=== PATIENT | male | born 1945 | race Caucasian/White ===

== ENCOUNTER 2019-11-12 14:49 | Outpatient (CLI) | payer MEDICARE, OTHER, SELFPAY ==
--- NOTE | ~2019-11-12 | US_ITS ---
EXAMINATION: US venous doppler [facility] DATE: 11/12/2019 15:20 INDICATION: Left lower limb pain and swelling TECHNIQUE: Mcneil scale images without and with compression and Doppler images of the left lower extrem ity veins were obtained. COMPARISON: None FINDINGS: The left common femoral vein, profunda femoral vein, femoral vein, popliteal vein, peroneal trunk, posterior tibial veins, and greater saphenous vein are patent. IMPRESSION: 1. Patent left lower extremity veins. No evidence of deep venous thrombosis. Reviewed, dictated and finalized at location A.
== END 2019-11-12 14:50 | disposition home or self-care (01) ==
LOC: ANHIMG 14:55
PROVIDERS: PCP Family Medicine; Visit Provider Family Medicine
DX: M79.89 Other specified soft tissue disorders (principal); M79.662 Pain in left lower leg; R22.42 Localized swelling, mass and lump, left lower limb
CPT/HCPCS: 93971

== ENCOUNTER 2020-09-29 13:16 | Outpatient (CLI) | payer MEDICARE, OTHER, SELFPAY ==
[2020-09-29 13:56] LABS: Basophils Absolute Auto 0.1 K/mm3 (0.0-0.1); Basophils Percent Auto 0.6 % (0.2-1.2); Eosinophils Absolute Auto 0.3 K/mm3 (0-0.3); Eosinophils Percent Auto 2.9 % (0-4.4); Hematocrit 47.1 % (42.0-52.0); Hemoglobin 15.6 g/dL (14.0-18.0); Immature Granulocyte Absolute 0.05 K/mm3 (0.00-0.031); Immature Granulocyte Percent A 0.5 % (0-0.5); Lymphocytes Absolute Auto 2.98 K/mm3 (0.9-3.2); Mean Corpuscular HGB Conc 33.1 g/dl (32-36); Mean Corpuscular Hemoglobin 31.2 pg (26-34); Mean Corpuscular Volume 94.2 fl (80-100); Mean Platelet Volume 9.5 fl (7.4-10.4); Monocytes Absolute Auto 0.9 K/mm3 (0.1-0.6); Monocytes Percent Auto 8.6 % (2.6-8.5); Neutrophils Absolute Auto 6.3 K/mm3 (1.3-6.7); Neutrophils Percent Auto 59.4 % (45.5-73.1); Platelet Count Result 165 k/mm3 (150-375); White Blood Count 10.6 K/mm3 (4.5-10.0)
[2020-09-29 14:07] LABS: Alanine Aminotransferase 18 U/L (4-50); Albumin Level 4.3 g/dL (3.5-5.1); Alkaline Phosphatase 117 U/L (38-126); Anion Gap 4 mmol/L (8-16); Aspartate Amino Transferase 23 U/L (17-59); Bilirubin,Total 0.4 mg/dL (0.2-1.3); Blood Urea Nitrogen 20 mg/dL (9-20); Calcium 10.1 mg/dL (8.4-10.2); Carbon Dioxide 30 mmol/L (22-30); Chloride 104 mmol/L (98-107); Cholesterol 144 mg/dL (0-200); Estimated Glomerular Filt Rate 37; Glucose 89 mg/dL (75-110); HDL Direct 36 mg/dL; Sodium 138 mmol/L (137-145); Triglycerides 203 mg/dL (<150); Uric Acid 4.4 mg/dL (3.5-8.5)
[2020-09-29 14:18] LABS: LDL Cholesterol Direct 81 mg/dL
[2020-09-29 14:26] LABS: Erythrocyte Sedimentation Rate 6 mm/hr (0-20)
[2020-10-04 00:22] LABS: Vitamin D 1,25 (OH)2 Total 24 pg/mL (18-72); Vitamin D2 1,25 (OH)2 <8 pg/mL; Vitamin D3 1,25 (OH)2 24 pg/mL
== END 2020-09-29 13:17 | disposition home or self-care (01) ==
PROVIDERS: PCP Family Medicine; Visit Provider Family Medicine
DX: E79.0 Hyperuricemia without signs of inflammatory arthritis and tophaceous disease (principal); I10 Essential (primary) hypertension; E78.2 Mixed hyperlipidemia; I71.4 Abdominal aortic aneurysm, without rupture; I73.9 Peripheral vascular disease, unspecified; E55.9 Vitamin D deficiency, unspecified
CPT/HCPCS: 36415; 80053; 80061; 82652; 84550; 85025; 85652

== ENCOUNTER 2020-10-04 13:18 | Outpatient (CLI) | payer MEDICARE, OTHER, SELFPAY ==
--- NOTE | ~2020-10-04 | CT_ITS ---
EXAMINATION: CT diagnostic chest wo con DATE: 10/04/2020 13:51 INDICATION: Chronic obstructive pulmonary disease TECHNIQUE: Computed tomography (CT) of the chest was performed without intravenous contrast. Automate d exposure control and iterative reconstruction technique were employed. Exam dose: 319.05 mGy-cm to ila exam DLP. COMPARISON: 04/14/2013 CT chest abdomen FINDINGS: Normal size of the thyroid gland. There is aortic and great vessel and extensive coronary artery calcification. Status post sternotomy and coronary bypass graft surgery. Normal heart size. No pericardial or pleural effusion. No hilar or mediastinal mass lesion or lymphadenopathy. There are severe emphysematous changes of the lungs. There is mild infiltrate or atelectasis in the posterior basilar right lower lobe and lingular area. Approximately 4 mm gallstone. No gallbladder wall thickening or pericholecystic fat stranding or flui d. 3.2 cm upper pole right renal cyst. Up to 6.5 cm caliber suprarenal abdominal aortic aneurysm. Idiopathic skeletal hyperostosis of the lower thoracic spine. No suspicious osteolytic or osteoblasti c lesions. IMPRESSION: Emphysema Status post sternotomy/coronary artery bypass graft surgery Mild infiltrate or atelectasis in the posterior basilar right lower lobe and lingula Cholelithiasis 3.2 cm upper pole right renal cysts Up to 6.5 cm caliber suprarenal abdominal aortic aneurysm; surgical consultation is recommended. Reviewed, dictated and finalized at Location A. Reviewed, dictated and finalized at location A. IMPRESSION: Emphysema Status post sternotomy/coronary artery bypass graft surgery Mild infiltrate or atelectasis in the posterior basilar right lower lobe and li ngula Cholelithiasis 3.2 cm upper pole right renal cysts Up to 6.5 cm caliber suprarenal abdominal aortic aneurysm; surgical consultatio n is recommended.
== END 2020-10-04 13:19 | disposition home or self-care (01) ==
PROVIDERS: PCP Family Medicine; Visit Provider Family Medicine
DX: J44.9 Chronic obstructive pulmonary disease, unspecified (principal); Z95.1 Presence of aortocoronary bypass graft; R91.8 Other nonspecific abnormal finding of lung field; K80.20 Calculus of gallbladder without cholecystitis without obstruction; N28.1 Cyst of kidney, acquired; I71.4 Abdominal aortic aneurysm, without rupture; Z72.0 Tobacco use
CPT/HCPCS: 71250

== ENCOUNTER 2020-12-14 15:55 | Emergency (ER) | payer MEDICARE, OTHER, SELFPAY ==
--- NOTE | ~2020-12-14 | XR_ITS ---
XR knee RT min 4V DATE: 12/14/2020 16:57 INDICATION: Right knee pain and swelling TECHNIQUE: 4 views including portable crosstable lateral COMPARISON: None FINDINGS: Multiple metallic foreign bodies suggestive of shrapnel. Mild suprapatellar knee joint effusion is suggested. Probable old healed proximal to mid fibular shaft fracture. No recent fracture or dislocation, perios teal reaction or bone destruction. Joint spaces appear relatively preserved. No radiopaque intra-anusha cular loose body or chondrocalcinosis. IMPRESSION: Multiple metallic foreign bodies Probable healed fibular shaft fracture Reviewed, dictated and finalized at location A.
[2020-12-14 16:03] VITALS: BP 137/81; PULSE 87; RESP 20; TEMP 36.9; O2SAT 97
--- NOTE | 2020-12-14 16:30 | ED.GENADULT ---
HPI - General Adult General Chief complaint: Unspecified Stated complaint: reaction to covid vaccine Time Seen by Provider: 12/14/20 16:12 Source: patient Mode of arrival: ambulatory Limitations: no limitations History of Present Illness HPI narrative: This is a 75 year old male that presents to the ER for right knee pain x 3 days. Also reports generalized body aches. Reports he recently had his second covid vaccination. Reports the knee has been painful and swollen. Worse with movement and relieved with rest. He does have history of gout. He has not taken any pain medication for pain. Denies fever, or erythema. Related Data Allergies Allergy/AdvReac Type Severity Reaction Status Date / Time No Known Allergies Allergy Unverified 09/28/20 13:08 Review of Systems Review of Systems: Narrative: CONSTITUTIONAL: Denies fever SKIN: Denies rash MUSCULOSKELETAL: Reports joint pain, and myalgia. NEUROLOGIC: Denies numbness All systems reviewed & are unremarkable except as noted in HPI and below PMFSH Past Medical History Medical History AAA (abdominal aortic aneurysm) Cerebral aneurysm without rupture COPD (chronic obstructive pulmonary disease) Coronary atherosclerosis due to calcified coronary lesion of diomede artery Mixed hyperlipidemia PAD (peripheral artery disease) PVD (peripheral vascular disease) Tobacco abuse Surgical History Surgical History Hx of CABG S/P AAA repair S/P arterial stent S/P insertion of iliac artery stent Family History Family History Mother Hypertension Family history of elevated blood lipids Family history of coronary artery disease, Onset Age: 62 Father Patient's father is Social History Social History (Updated 09/28/20 @ 13:08 by Opal Oliver) Social History: Smoking status: Former smoker Tobacco type: cigarettes Second hand tobacco smoke exposure: No Smoking end date: 05/26/17 Alcohol intake: never Substance use: never Substance use type: does not use Gender identity (if verbalized by the patient): Male Exam Narrative: Exam Narrative: GENERAL: Well-appearing, well-nourished, and in no acute distress. HEAD: Normocephalic, atraumatic. EYES: EOMI. CHEST: Clear to auscultation. No respiratory distress. No wheezes rales or rhonchi HEART: Regular rate and rhythm. No murmur heard. Normal peripheral pulses. EXTREMITIES: Normal range of motion. Pain with active ROM in the right knee. Mild edema to the right knee anteriorly with mild warmth. No erythema. DP pulses obtained by doppler SKIN: Warm, dry, no rash. NEURO: No focal deficits. Alert and oriented x3. PSYCH: Normal mood and affect Course Consultations Consultation #1: Spoke with Dr. Jay about patient and workup who agrees with plan and will follow up in clinic Date: 12/14/20 Time: 17:30 Vital Signs Vital signs: Vital Signs Temperature 98.4 F 12/14/20 16:03 Pulse Rate 87 12/14/20 16:03 Respiratory Rate 20 12/14/20 16:03 Blood Pressure 137/81 12/14/20 16:03 Pulse Oximetry 97 12/14/20 16:03 Temperature 98.4 F 12/14/20 16:03 Pulse Rate 87 12/14/20 16:03 Respiratory Rate 20 12/14/20 16:03 Blood Pressure 137/81 12/14/20 16:03 Pulse Oximetry 97 12/14/20 16:03 Medical Decision Making MDM Narrative Medical decision making narrative: Patient presents to the emergency department for right knee pain ongoing over the last couple of days. No recent injury or trauma. The knee is mildly swollen and warm. No erythema. Patient is afebrile. No leukocytosis on CBC. CRP is not elevated. Kidney function appears to be around patient's baseline. Right knee x-ray shows a mild suprapatellar knee joint effusion. Patient does have history of gout. Will be treated for gout flare with colchicine.
[2020-12-14 16:55] LABS: Basophils Percent Auto 0.5 % (0.2-1.2); Eosinophils Absolute Auto 0.2 K/mm3 (0-0.3); Eosinophils Percent Auto 2.7 % (0-4.4); Hematocrit 47.5 % (42.0-52.0); Hemoglobin 15.4 g/dL (14.0-18.0); Immature Granulocyte Absolute 0.03 K/mm3 (0.00-0.031); Immature Granulocyte Percent A 0.4 % (0-0.5); Lymphocytes Absolute Auto 2.09 K/mm3 (0.9-3.2); Lymphocytes Percent Auto 25.2 % (18.3-44.2); Mean Corpuscular HGB Conc 32.4 g/dl (32-36); Mean Corpuscular Volume 95.8 fl (80-100); Mean Platelet Volume 9.7 fl (7.4-10.4); Monocytes Absolute Auto 0.4 K/mm3 (0.1-0.6); Monocytes Percent Auto 5.2 % (2.6-8.5); Neutrophils Absolute Auto 5.5 K/mm3 (1.3-6.7); Platelet Count Result 128 k/mm3 (150-375); Red Blood Count 4.96 M/mm3 (4.6-6.20); Red Cell Distribution Width 15.6 % (11.5-14.5); White Blood Count 8.3 K/mm3 (4.5-10.0)
[2020-12-14 17:09] LABS: Anion Gap 10 mmol/L (8-16); Blood Urea Nitrogen 19 mg/dL (9-20); Calcium 9.8 mg/dL (8.4-10.2); Carbon Dioxide 25 mmol/L (22-30); Chloride 103 mmol/L (98-107); Estimated CRCL calculation 33 ml/min; Estimated Glomerular Filt Rate 37; Glucose 137 mg/dL (65-110); Potassium 4.3 mmol/L (3.4-5.0); Sodium 138 mmol/L (137-145); Uric Acid 4.5 mg/dL (3.5-8.5)
[2020-12-14 17:31] LABS: Erythrocyte Sedimentation Rate 7 mm/hr (0-20)
[2020-12-14 17:45] VITALS: BP 128/76; PULSE 91; RESP 18; O2SAT 98
[2020-12-14] MEDS: COLCHICINE 0.6 MG TABLET 1.2 MG PO (17:46)
== END 2020-12-14 17:49 | disposition home or self-care (01) ==
PROVIDERS: Physician Assistant; Emergency Provider Emergency Medicine; PCP Family Medicine
DX: M70.41 Prepatellar bursitis, right knee (principal); M10.9 Gout, unspecified; J44.9 Chronic obstructive pulmonary disease, unspecified; I25.10 Atherosclerotic heart disease of native coronary artery without angina pectoris; E78.2 Mixed hyperlipidemia; I73.9 Peripheral vascular disease, unspecified; Z95.1 Presence of aortocoronary bypass graft; Z95.5 Presence of coronary angioplasty implant and graft; Z87.891 Personal history of nicotine dependence
CPT/HCPCS: 36415; 73564; 80048; 84550; 85025; 85652; 86140; 99283; A9270

== ENCOUNTER 2021-08-06 14:12 | Outpatient (CLI) | payer MEDICARE, OTHER, SELFPAY ==
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
== END 2021-08-06 14:13 | disposition home or self-care (01) ==
LOC: ANHIMG 14:15
PROVIDERS: PCP Family Medicine; Visit Provider Nurse Practitioner Gerontology
DX: R06.02 Shortness of breath (principal)
CPT/HCPCS: 71046

== ENCOUNTER 2022-02-11 13:33 | Outpatient (CLI) | payer MEDICARE, OTHER, SELFPAY ==
[2022-02-11 14:12] LABS: Basophils Percent Auto 0.5 % (0.2-1.2); Eosinophils Absolute Auto 0.2 K/mm3 (0-0.3); Eosinophils Percent Auto 2.2 % (0-4.4); Immature Granulocyte Absolute 0.04 K/mm3 (0.00-0.031); Immature Granulocyte Percent A 0.5 % (0-0.5); Lymphocytes Absolute Auto 2.65 K/mm3 (0.9-3.2); Lymphocytes Percent Auto 30.9 % (18.3-44.2); Mean Corpuscular HGB Conc 32.7 g/dl (32-36); Mean Corpuscular Hemoglobin 32.3 pg (26-34); Mean Corpuscular Volume 98.8 fl (80-100); Monocytes Absolute Auto 0.7 K/mm3 (0.1-0.6); Monocytes Percent Auto 8.2 % (2.6-8.5); Neutrophils Percent Auto 57.7 % (45.5-73.1); Platelet Count Result 149 k/mm3 (150-375); Red Blood Count 4.96 M/mm3 (4.6-6.20); Red Cell Distribution Width 15.3 % (11.5-14.5); White Blood Count 8.6 K/mm3 (4.5-10.0)
[2022-02-11 14:31] LABS: Alanine Aminotransferase 25 U/L (6-50); Albumin Level 4.1 g/dL (3.5-5.1); Alkaline Phosphatase 109 U/L (38-126); Anion Gap 9 mmol/L (8-16); Aspartate Amino Transferase 23 U/L (17-59); Bilirubin,Total 0.6 mg/dL (0.2-1.3); Blood Urea Nitrogen 20 mg/dL (9-20); Carbon Dioxide 23 mmol/L (22-30); Chloride 107 mmol/L (98-107); Cholesterol 136 mg/dL (0-200); Estimated Glomerular Filt Rate 39; Glucose 84 mg/dL (65-110); HDL Direct 33 mg/dL; Sodium 139 mmol/L (137-145); Triglycerides 211 mg/dL (<150)
[2022-02-11 14:42] LABS: LDL Cholesterol Direct 74 mg/dL
== END 2022-02-11 13:34 | disposition home or self-care (01) ==
PROVIDERS: PCP Family Medicine; Visit Provider Nurse Practitioner Gerontology
DX: E78.2 Mixed hyperlipidemia (principal); N18.30 Chronic kidney disease, stage 3 unspecified; I71.4 Abdominal aortic aneurysm, without rupture
CPT/HCPCS: 36415; 80053; 80061; 85025

== ENCOUNTER 2023-06-24 14:16 | Outpatient (CLI) | payer MEDICARE, OTHER, SELFPAY ==
--- NOTE | ~2023-06-24 | XR_ITS ---
XR shoulder LT min 2V DATE: 06/24/2023 14:35 INDICATION: Chronic left shoulder pain. No injury. TECHNIQUE: 4 views COMPARISON: None FINDINGS: The humeral head abuts the undersurface of the acromion process consistent with rotator cuf f tear or atrophy. There is mild degenerative change at the left acromioclavicular joint. There is diffuse osteopenia. No fracture, dislocation, periosteal reaction or bone destruction or abn ormal soft tissue calcification of the left shoulder is detected. Status post sternotomy. Thoracic aortic calcification. Probable left carotid artery stent. IMPRESSION: Left rotator cuff tear or chronic atrophy Osteopenia Reviewed, dictated and finalized at location L. [employer]
== END 2023-06-24 14:17 | disposition home or self-care (01) ==
LOC: ANHIMG 14:19
PROVIDERS: PCP Family Medicine; Visit Provider Family Medicine
DX: M25.512 Pain in left shoulder (principal); M75.102 Unspecified rotator cuff tear or rupture of left shoulder, not specified as traumatic; M85.88 Other specified disorders of bone density and structure, other site
CPT/HCPCS: 73030

== ENCOUNTER 2025-01-27 15:40 | Outpatient (CLI) | payer MEDICARE, OTHER, SELFPAY ==
--- OUTSIDE RECORDS SUMMARY | 2013-01-13 19:00 | XMS_ITS | Continuity of Care Document ---
Author Organization [facility] Address [address] [place] [address] Phone Care Team Providers Care Batch Unloader Name Role Phone Jose Abbott MD Unavailable Unavailable Advance Directives Directive Yes / No Effective Date File Name No Information Encounters Encounter Description Practice Location Reason(s) For Visit Diagnoses Date Provider Providers Copied on Encounter [facility], [address] [place], [place], [id number], [place] tel:[phone] [facility] No Information Scar Garcia. [address] [place], [place], [id number], [place]. tel:[phone] Family History Family Member Type Diagnosis Age [...]
--- NOTE | ~2025-01-27 | CT_ITS ---
EXAMINATION: CT lung screening DATE: 01/27/2025 15:56 INDICATION: Nicotine dependence. TECHNIQUE: Computed tomography (CT) of the chest was performed without intravenous contrast. The dose-length product was 197.57 mGy-cm. Automated exposure control and iterative reconstruction technique were employed. COMPARISON: CT dated 10/04/2020 FINDINGS: There is a large saccular aneurysm of the abdominal aorta at the level of the renal arteries measuring 14.1 x 9.5 cm with focal area of hyperdensity suspicious for associated hemorrhage. This is incompletely visualized at its inferior extent. There is atherosclerosis of the aorta and coronary arteries in the chest. No significant pleural or pericardial effusion. Heart size normal. No thoracic lymphadenopathy. Severe emphysema. No endobronchial lesions. There is calcified granuloma in the left lower lobe. No focal airspace consolidation. No pneumothorax. There are a few 1-2 mm upper lobe nodules, likely benign. Status post median sternotomy for CABG. Mild thoracic spondylosis. There are gallstones. There is 3.5 cm cyst in the upper pole of the right kidney. IMPRESSION: 1. Lung-RADS category 2: Benign appearance or behavior. Continue annual screening with noncontrast low-dose chest CT in 12 months. 2: Large abdominal aortic saccular aneurysm measuring 14.1 x 9.5 cm greatest axial dimension, incompletely visualized. Possible associated internal hemorrhage versus calcified thrombus. This appears to have increased since prior study although it was not completely included on the prior examination. Dr. Asael Chatterjee discussed with Dr. Josue Dennison MD at 02/04/2025 15:44 CDT. Reviewed, dictated and finalized at location O. IMPRESSION: 1. Lung-RADS category 2: Benign appearance or behavior. Continue annual screeni ng with noncontrast low-dose chest CT in 12 months. 2: Large abdominal aortic saccular aneurysm measuring 14.1 x 9.5 cm greatest ax ial dimension, incompletely visualized. Possible associated internal hemorrhage versus calcified thrombus. This appears to have increased since prior study al though it was not completely included on the prior examination. Dr. Asael Chatterjee discussed with Dr. Josue Dennison MD at 02/04/2025 15:44 CDT.
--- OUTSIDE RECORDS SUMMARY | 2025-01-27 15:45 | XMS_ITS | Clinical Summary ---
Author Organization [facility] Address [address] [place] [address] Care Team Providers Care Airport Operations Duty Manager Name Role Phone Josue Dennison MD Primary Care Provider [phone] Allergies Active Allergy Reactions Criticality Noted Date Comments Codeine Unknown 05/12/2004 Medications aspirin 81 MG tablet Take 324 mg by mouth daily. Active cilostazol 100 MG tablet TAKE 1 TABLET BY MOUTH TWICE DAILY HOUR BEFORE OR 2 HOURS AFTER BREAKFAST AND DINNER 0 Active clopidogrel 75 MG tablet Take 75 mg by mouth daily. 5 Active vitamin D2, ergocalciferol, 33186 UNITS capsule Take 50,000 Units by mouth once a week. 9 Active esomeprazole 40 MG capsule Take 40 mg by mouth. Active fluticasone propionate 50 MCG/ACT nasal spray 9 Active gabapentin 100 MG capsule Take 100 mg by mouth 3 (three) times daily. 0 Active ondansetron (ZOFRAN-ODT) 4 MG disintegrating tablet Take 1 tablet (4 mg total) by mouth every 8 (eight) hours as needed for Nausea. 20 tablet 3 Active sucralfate (CARAFATE) 1 G tablet Take 1 tablet (1 g total) by mouth 4 (four) times daily before meals and nightly. 120 tablet 3 Active Active Problems Problem Noted Date Diagnosed Date Tear of left rotator cuff 10/29/2023 Shoulder pain, left 08/12/2023 Immunizations Immunization Administration Dates Next Due Tdap (Boostrix) 10/14/2024(Deferred: Patient/family declined - last tetanus in 2022) Social History Tobacco Use Types Packs/Day Years Used Date Smoking Tobacco: Every Day Cigarettes Last attempted to quit: 05/26/2019 Smokeless Tobacco: Never Chew Tobacco Cessation:Ready to Q uit: Not Asked; Counseling Given: Not Answered Alcohol Use Standard Drinks/Week Comments Not Currently 0 (1 standard drink = 0.6 oz pur e alcohol) Sex and Gender Information Value Date Recorded Sex Assigned at Not on file Legal Sex Male 4:32 PM CDT Gender Identity Not on file Sexual Orientation Not on file Last Filed Vital Signs Vital Sign Reading Time Taken Comments Blood Pressure 144/81 10/14/2024 1:30 PM CDT Pulse 72 10/14/2024 1:30 PM CDT Temperature 36.2 C (97.1 F) 10/14/2024 1:30 PM CDT Respiratory Rate 18 10/14/2024 1:30 PM CDT Oxygen Saturation 94% 10/14/2024 1:30 PM CDT Inhaled Oxygen Concentration - - Weight 83 kg (183 lb) 10/14/2024 1:30 PM CDT Height 165.1 cm (5' 5) 10/14/2024 1:30 PM CDT Body Mass Index 30.45 10/14/2024 1:30 PM CDT Plan of Treatment Health Maintenance Due Date Last Done Comments Hepatitis C 1963 DTaP, Tdap and Td Vaccines ( 1 - Tdap) 1964 Annual Medicare Wellness Visit 11/22/2011 Pneumococcal Vaccine: 50+ Years (2 of 2 - PPSV23) 11/05/2017 09/10/2017 RSV Immunization or 60+ Years (1 - 1-dose 75+ series) 2021 PHQ-2 (Physician Chandler) 05/26/2024 COVID-19 Vaccine ( - 2023-2 5 season) 2025 Zoster Vaccines Completed 12/08/2017, 09/10/2017 Meningococcal B Vaccine Aged Out No l onger eligible based on patient's age to complete this topic Meningococcal Vaccine Aged Out No velma jaclyn eligible based on patient's age to complete this topic RSV Immunizations Under 20 Months Aged Out No longer eligible b ased on patient's age to complete this topic Additional Health Concerns Infection Onset Date Last Indicated MRSA 10/19/2024 10/19/2024 Insurance MEDICARE [facility] Care Teams Airport Operations Duty Manager Relationship Specialty Start Date End Date Josue Dennison MD [address] [place] [address] PCP - General FAMILY PRACTICE 10/14/24
== END 2025-01-27 15:41 | disposition home or self-care (01) ==
PROVIDERS: PCP Family Medicine; Visit Provider Family Medicine
DX: Z12.2 Encounter for screening for malignant neoplasm of respiratory organs (principal); Z87.891 Personal history of nicotine dependence; I71.40 Abdominal aortic aneurysm, without rupture, unspecified
CPT/HCPCS: 71271

== ENCOUNTER 2025-01-31 11:18 | Outpatient (CLI) | payer MEDICARE, OTHER, SELFPAY ==
--- OUTSIDE RECORDS SUMMARY | 2013-01-13 19:00 | XMS_ITS | Continuity of Care Document ---
Author Organization [facility] Address [address] [place] [address] Phone Care Team Providers Care Agribusiness Internship Name Role Phone Jose Abbott MD Unavailable Unavailable Advance Directives Directive Yes / No Effective Date File Name No Information Encounters Encounter Description Practice Location Reason(s) For Visit Diagnoses Date Provider Providers Copied on Encounter [facility], [address] [place], [place], [id number], [place] tel:[phone] [facility] No Information Scar Garcia. [address] [place], [place], [id number], [place]. tel:[phone] Family History Family Member Type Diagnosis Age At Onset No Information Payers Payer name Insurance type Covered green party ID Authoriza tion(s) No Information Social History Type Description Quantity Date Captured Comments Sex Male Smoking Status No Information Chief Complaint And Reason For Visit No Information Plan Of Treatment Date Type Action Status No Information History Of Present Illness Encounter Date Complaint History Of Prese nt Illness No Information Instructions Date Instruction Additional Infor mation No Information Assessments Type Assessment Date No Information
--- OUTSIDE RECORDS SUMMARY | 2013-01-13 19:00 | XMS_ITS | Continuity of Care Document ---
Author Organization [facility] Address [address] [place] [address] Phone Care Team Providers Care Computer Numerical Control Grinder Name Role Phone Jose Abbott MD Unavailable Unavailable Advance Directives Directive Yes / No Effective Date File Name No Information Encounters Encounter Description Practice Location Reason(s) For Visit Diagnoses Date Provider Providers Copied on Encounter [facility], [address] [place], [place], [id number], [place] tel:[phone] [facility] No Information Scar Garcia. [address] [place], [place], [id number], [place]. tel:[phone] Family History Family Member Type Diagnosis Age At Onset No Information Payers Payer name Insurance type Covered libertarian ID Authoriza tion(s) No Information Social History [...]
--- OUTSIDE RECORDS SUMMARY | 2025-01-31 11:42 | XMS_ITS | Clinical Summary ---
Author Organization [facility] Address [address] [place] [address] Care Team Providers Care Housekeeper Manager Name Role Phone Micehla Dickey RN Unavailable [phone] Misty Buchanan MD Primary Care Provider + Source Comments [facility],non[facility] Affiliates and Associated Physician Practices is amultiple site organization consisting of ambulatory clinics and hospital sitesin [place], [place], [place] and [place]. This disclosure is being madepursuant to the Care Everywhere program and may not contain all information available regarding this patient. Last updated 18.[facility] [employer] Allergies No known active allergies Medications * Be aware that medications may not be up to date on this document. Alwaysverify current medications with the patient. aspirin (ASPIRIN) 81 MG tablet Take 324 mg by mouth once daily Active esomeprazole (NEXIUM) 40 MG capsule Take 40 mg by mouth as needed Active clopidogrel (PLAVIX) 75 MG tablet Take 1 Tab by mouth once daily 30 Tab 2 5 Active Additional Information Patient not taking.Reported on 01/09/2016 Active Problems Problem Noted Date Diagnosed Date Bilateral carotid artery stenosis 03/21/2015 Cerebral aneurysm 10/26/2014 H/O craniotomy 10/26/2014 HTN (hypertension) 10/26/2014 CAD (coronary artery disease) 10/26/2014 Family History Medical History Relation Name Comments Cancer Father Cancer Mother Cancer Sister Relation Name Status Comments Father Mother Sister Social History Tobacco Use Types Packs/Day Years Used Date Smoking Tobacco: Every Day Cigarettes Smokeless Tobacco: Never Alcohol Use Standard Drinks/Week Comments No 0 (1 standard drink = 0.6 oz pur e alcohol) Sex and Gender Information Value Date Recorded Sex Assigned at Not on file Legal Sex Male 11:53 AM CDT Gender Identity Not on file Sexual Orientation Not on file Occupation Industry Job Start Date Job End Date UNKNOWN Not on file Not on file Not on file Last Filed Vital Signs Vital Sign Reading Time Taken Comments Blood Pressure 128/80 01/09/2016 2:06 PM CDT Pulse 64 01/09/2016 2:06 PM CDT Temperature 36.3 C (97.4 F) 02/02/2015 11:14 AM CDT Respiratory Rate 16 01/09/2016 2:06 PM CDT Oxygen Saturation 96% 02/02/2015 11:14 AM CDT Inhaled Oxygen Concentration - - Weight 69.4 kg (153 lb) 01/09/2016 2:06 PM CDT Height 165.1 cm (5' 5) 01/09/2016 2:06 PM CDT Body Mass Index 25.46 01/09/2016 2:06 PM CDT Plan of Treatment Health Maintenance Due Date Last Done Comments HEPATITIS C SCREENING 11/16/1963 DTAP/TDAP/TD VACCINES (1 - Tdap) 1964 PNEUMOCOCCAL VACCINE 50+ (1 of 2 - PCV) 1965 ZOSTER VACCINE (1 of 2) 1996 Respiratory Syncytial Virus (RSV) Vaccine Pt: or over 60 yrs (1 - 1-dose 75+ series) 2021 DEPRESSION SCREENING 05/26/2024 COVID-19 VACCINE (1 - 2023-2 5 season) 2025 INFLUENZA VACCINE (#1) 2025 HEPATITIS B VACCINE Aged Out No longe r eligible based on patient's age to complete this topic HIB VACCINE Aged Out No longer eligi ble based on patient's age to complete this topic HPV VACCINE Aged Out No longer eligi ble based on patient's age to complete this topic MENINGOCOCCAL (Group B) VACC INE SHARED DECISION-MAKING Aged Out No longer eligibl e based on patient's age to complete this topic MENINGOCOCCAL GROUPS A/C/Y/W VACCINE Aged Out No longer eligible b ased on patient's age to complete this topic Insurance MEDICARE [facility] Care Teams Housekeeper Manager Relationship Specialty Start Date End Date Misty Buchanan MD [address] [place] [address] PCP - General Family Medicine 02/02/15 Michela Dickey, RN Treatment Technician 02/01/15
--- OUTSIDE RECORDS SUMMARY | 2025-01-31 11:42 | XMS_ITS | Clinical Summary ---
Author Organization [facility] Address [address] [place] [address] Care Team Providers Care Biofuels Manager Name Role Phone Josue Dennison MD Primary Care Provider [phone] Allergies Active Allergy Reactions Criticality Noted Date Comments Codeine Unknown 05/12/2004 Medications aspirin 81 MG tablet Take 324 mg by mouth daily. Active cilostazol 100 MG tablet TAKE 1 TABLET BY MOUTH TWICE DAILY HOUR BEFORE OR 2 HOURS AFTER BREAKFAST AND DINNER 0 Active clopidogrel 75 MG tablet Take 75 mg by mouth daily. 5 Active vitamin D2, ergocalciferol, 48299 UNITS capsule Take 50,000 Units by mouth [...] - 1-dose 75+ series) 2021 PHQ-2 (Physician Roberts) 05/26/2024 COVID-19 Vaccine ( - 2023-2 5 [...] Last Indicated MRSA 10/19/2024 10/19/2024 Insurance MEDICARE [facility] Care Teams Biofuels Manager Relationship Specialty Start Date End Date Josue Dennison MD [address] [place] [address] PCP - General FAMILY PRACTICE 10/14/24
[2025-01-31 11:58] LABS: Hematocrit 50.9 % (42.0-52.0); Hemoglobin 16.6 g/dL (14.0-18.0); Immature Granulocyte Percent A 0.4 % (0-0.5); Immature Platelet Fraction Pct 2.2 % (0.9-11.2); Lymphocytes Absolute Auto 1.95 K/mm3 (0.9-3.2); Mean Corpuscular HGB Conc 32.6 g/dl (32-36); Mean Corpuscular Hemoglobin 31.9 pg (26-34); Mean Corpuscular Volume 97.7 fl (80-100); Nucleated Red Blood Cells Absolute Auto 0.000 K/mm3 (0.0-0.012); Nucleated Red Blood Cells Perc 0.0 % (0.0-0.2); Platelet Count Result 142 k/mm3 (150-375); Red Blood Count 5.21 M/mm3 (4.6-6.20); White Blood Count 7.8 K/mm3 (4.5-10.0)
[2025-01-31 12:06] LABS: Hemoglobin A1C 5.8 % (<5.7)
[2025-01-31 12:07] LABS: Add Urine Microscopic? YES; Appearance Urine Clear (Clear); Glucose Urine UA Negative (Negative); Leukocyte Esterase Ur 1+ LEU/UL (Negative); Need Manual Microscopic Reviewed; Nitrate Urine Negative (Negative); Non Pathogenic Casts 0-2; Specific Grav Ur 1.018 (1.001-1.035)
[2025-01-31 12:12] LABS: Alanine Aminotransferase 20 U/L (6-50); Albumin Level 4.3 g/dL (3.5-5.1); Alkaline Phosphatase 124 U/L (38-126); Anion Gap 6 mmol/L (4-12); Aspartate Amino Transferase 26 U/L (17-59); Bilirubin,Total 0.7 mg/dL (0.2-1.3); Blood Urea Nitrogen 24 mg/dL (9-20); Calcium 9.6 mg/dL (8.4-10.2); Carbon Dioxide 27 mmol/L (22-30); Chloride 107 mmol/L (98-107); Cholesterol 158 mg/dL (0-200); Estimated Glomerular Filt Rate 42; Glucose 102 mg/dL (65-110); HDL Direct 35 mg/dL; Potassium 5.2 mmol/L (3.4-5.0); Sodium 140 mmol/L (137-145); Total Protein 7.1 g/dL (6.3-8.2); Triglycerides 267 mg/dL (<150)
[2025-01-31 12:39] LABS: Prostate Specific Antigen 5.0 ng/mL (< OR = 4.0)
[2025-01-31 12:43] LABS: Thyroid Stimulating Hormone 1.430 uIU/mL (0.465-4.680)
== END 2025-01-31 11:19 | disposition home or self-care (01) ==
PROVIDERS: PCP Family Medicine; Referring Provider Family Medicine; Visit Provider Student in an Organized Health Care Education/Training Program
DX: K21.00 Gastro-esophageal reflux disease with esophagitis, without bleeding (principal); N18.30 Chronic kidney disease, stage 3 unspecified; E78.2 Mixed hyperlipidemia; I11.9 Hypertensive heart disease without heart failure; I25.10 Atherosclerotic heart disease of native coronary artery without angina pectoris; I25.84 Coronary atherosclerosis due to calcified coronary lesion; I73.9 Peripheral vascular disease, unspecified; R73.01 Impaired fasting glucose; Z00.00 Encounter for general adult medical examination without abnormal findings; R35.1 Nocturia; Z12.5 Encounter for screening for malignant neoplasm of prostate
CPT/HCPCS: 36415; 80053; 80061; 81001; 83036; 84153; 84443; 85025; 85055